=== PATIENT | male | born 1955 | race Caucasian/White ===

== ENCOUNTER → 2017-01-16 | Outpatient (CLI) | payer BC ==
[~2017-01-16] MED LIST: AMLO-110 PO; MAGN250T3 PO; OXYC-106 PO; SERT-234 PO; SPIR50TA2 PO
[2017-01-16 10:29] LABS: BASO % 0.6 %; BASO ABS # 0.04 K/uL (0-0.2); COMPLETE YES; EOS % 3.7 %; HEMATOCRIT 45.8 % (42-52); IG% 0.6 %; LYMPH % 18.7 %; LYMPH ABS # 1.31 K/uL (1.2-3.4); MEAN CELL VOLUME 89.3 fL (80-100); MEAN CORPUSCULAR HGB CONC 35.8 g/dl (32-36); MEAN PLATELET VOLUME 11.1 fL (7.4-10.4); MONO % 9.9 %; NEUT % 66.5 %; PLATELET COUNT 123 K/uL (130-400); RED BLOOD COUNT 5.13 M/uL (4.7-6.1)
[2017-01-16 10:43] LABS: ESTIMATED AVERAGE GLUCOSE 88 mg/dl; HA1C FLAG Normal (Normal)
[2017-01-16 14:19] LABS: ALT/SGPT 56 U/L (12-78); AST/SGOT 29 U/L (15-37); BLOOD UREA NITROGEN 18 mg/dl (7-18); BUN/CREATININE RATIO 14.8 (10-20); CALCIUM 9.1 mg/dl (8.5-10.1); CARBON DIOXIDE 29 mmol/L (21-32); CHLORIDE 107 mmol/L (98-107); GLUCOSE 88 mg/dl (70-99); MAGNESIUM 2.2 mg/dl (1.8-2.4); POTASSIUM 4.3 mmol/L (3.5-5.1); PROSTATE SPECIFIC ANTIGEN 0.987 ng/ml (0.000-4.000); SODIUM 141 mmol/L (136-145)
[2017-01-16 14:21] LABS: ALB/GLOB RATIO 1.1 (0.9-2); ALKALINE PHOSPHATASE 102 U/L (45-117); CHOLESTEROL 164 mg/dl (0-200); CHOLESTEROL/HDL RATIO 3.8; HDL CHOLESTEROL 43 mg/dl; LDL CHOLESTEROL CALCULATED 98 mg/dl; TRIGLYCERIDES 115 mg/dl (0-150); VERY LOW DENSITY LIPOPROT CALC 23 mg/dl
--- NOTE | 2017-01-23 11:10 | CODING QUERY MEDICAL NECESSITY ---
CQSUPPORTING DIAGNOSIS NEEDED A supporting diagnosis is required for the test/procedure performed on this patient in order for us to be reimbursed by the patient's insurance. Please provide a supporting diagnosis for the following test/procedure listed below next to the test name along with your signature. *If there is no additional diagnosis for this patient that would support the following test/procedure please document that below next to the test/procedure. Test(s)/Procedure(s) that require a supporting diagnosis: DOS 01/16/17 PROSTATE SPECIFIC Provider Signature: Date: Thank you Francisca Jay [employer] Once completed, please kindly fax back to [phone] For questions please call [phone]
== END | disposition home or self-care (01) ==
LOC: C.LABBC 08:56
PROVIDERS: ATTEND Internal Medicine
DX: E78.00 Pure hypercholesterolemia, unspecified (principal); E26.09 Other primary hyperaldosteronism; E83.42 Hypomagnesemia; R73.01 Impaired fasting glucose

== ENCOUNTER → 2017-05-11 | Outpatient (CLI) | payer BC ==
--- NOTE | 2017-05-11 11:44 | DIAGNOSTIC IMAGING REPORT ---
MRI OF THE LUMBAR SPINE WITHOUT CONTRAST CLINICAL HISTORY: Low back pain. Lumbar spinal stenosis. Lumbar radiculopathy. COMPARISON STUDY: MRI of the lumbar spine September 07, 2014. TECHNIQUE: Utilizing a 1.5 Asha magnet and dedicated coil, multiplanar, multiecho imaging of the lumbar spine was performed without IV contrast. FINDINGS: For purposes of numbering on this exam, the L5-S1 disc space is assigned to axial image 23 of 26. Note is made of interval postsurgical findings consistent with L5-S1 laminectomies. There is no intracanalicular mass or fluid collection. Prominent epidural fat within the lumbar and sacral canals is noted. Conus terminates at the upper L1 level. Paravertebral soft tissues are unremarkable. L1-2: The central canal and neural foramen are patent. L2-3: There is mild disc space narrowing with facet arthrosis. The central canal and neural foramen are patent. L3-4: There is disc space narrowing with facet arthrosis. There is minimal disc bulge. There is mild narrowing of the central canal and the right neural foramen. L4-5: There is mild disc bulge with ligamentous hypertrophy. There is minimal narrowing of the central canal, lateral recesses and neural foramen. L5-S1: Central canal and neural foramen are patent. IMPRESSION: 1. Status post interval L5-S1 laminectomy. 2. Mild multilevel degenerative disc disease with moderate multilevel facet arthrosis. Mild central canal narrowing at L3-L4 and minimal central canal narrowing at L4-L5. 3. Mild multilevel neural foraminal stenosis. Electronically signed by: Reagan Coates M.D. 05/11/2017 11:43 AM Dictated Date/Time: 05/11/2017 11:36 AM
== END | disposition home or self-care (01) ==
LOC: C.MRI 10:45
PROVIDERS: ATTEND Physical Medicine & Rehabilitation
DX: L82.0 Inflamed seborrheic keratosis (principal); M54.16 Radiculopathy, lumbar region; M48.06 Spinal stenosis, lumbar region; M51.36 Other intervertebral disc degeneration, lumbar region; M46.99 Unspecified inflammatory spondylopathy, multiple sites in spine

== ENCOUNTER → 2017-06-11 | Day surgery (SDC) | payer BC ==
[2017-05-20 09:25] VITALS: Ht 175.3 cm; Wt 113.6 kg
[~2017-06-11] VITALS: Ht 175.3 cm; Wt 113.6 kg
[~2017-06-11] MED LIST changes: +IOPAMIDOL INJ 61% 15 ML VIAL ONE; +LIDOCAINE HCL 1% MPF 5 ML VIAL ONE; -OXYC-106 PO; +SODIUM CHLORIDE 0.9% INJ 10 ML VIAL ONE
--- NOTE | 2017-06-11 13:06 | History & Physical Bridge - SC ---
H&P Re-Evaluation Bridge Note: I have examined the patient, reviewed the History & Physical and in the interval since the performance of the History & Physical I have noted the following changes of clinical significance: No changes noted
[2017-06-11 13:30] VITALS: TEMP 36.4
[2017-06-11 13:40] VITALS: BP 170/70; PULSE 60; O2SAT 96
--- NOTE | 2017-06-11 13:40 | Discharge Instructions ---
Discharge Instructions Date of Service Jun 11, 2017. Visit Reason for Visit: Lumbar Radiculopathy Discharge Discharge Diagnosis / Problem: leg pain Discharge Goals Goal(s): Decrease discomfort, Improve function Activity Recommendations Activity Limitations: resume your previous activity Anesthesia . Post Anesthesia Instructions: If you have had General Anesthesia or IV Sedation: * Do not drive today. * Resume driving when surgeon permits. * Do not make important decisions or sign legal documents today. * Call surgeon for: 1. Temperature elevations greater than 101 degrees F. 2. Uncontrollable pain. 3. Excessive bleeding. 4. Persistent nausea and vomiting. 5. Medication intolerance (nausea, vomiting or rash). * For nausea and vomiting use only clear liquids such as: tea, soda, bouillon until nausea subsides, then gradually increase diet as tolerated. * If you have any concerns or questions, call your surgeon's office. If physician is unavailable and it is an emergency, call 911 or go to the nearest emergency room. . Diet Recommendations Recommended Home Diet: resume previous diet Procedures Procedures Performed: LUMBAR EPIDURAL STEROID INJECTION Pending Studies Studies pending at discharge: no Medical Emergencies . Who to Call and When: Medical Emergencies: If at any time you feel your situation is an emergency, please call 911 immediately. . Non-Emergent Contact Non-Emergency issues call your: Specialist . . "Provider Documentation" section prepared by Elie Mckee. .
--- NOTE | 2017-06-11 14:19 | OPERATIVE REPORT ---
DATE OF OPERATION: 06/11/2017 PREOPERATIVE DIAGNOSIS: L4-L5 stenosis with neurogenic claudication and radiculopathy. POSTOPERATIVE DIAGNOSIS: Same. PROCEDURE: Left paramedian L4-L5 interlaminar epidural steroid injection under fluoroscopic guidance. SURGEON: Dr. Elie Mckee. INDICATIONS: The patient is a 62-year-old white male that did not respond to a caudal epidural. He has known stenosis at L4-L5 and a laminectomy at L5-S1. Decision is made above the site of laminectomy to address his radicular pain. PHYSICAL EXAMINATION: Pleasant male seated comfortably in no apparent distress. He has no focal weakness. He has some difficulty moving from a sit to stand position and ambulated independently in a flexed position. CONSENT: Verbal and written consent was obtained from the patient. Risks and benefits were reviewed. Risks include but are not limited to epidural abscess, epidural hematoma, allergic reaction, dural puncture. The patient wishes to proceed. PROCEDURE: The patient was taken back to the special procedures room of the [facility] where he was maintained in a prone position. Backside was cleansed with Betadine x3 and a dry sterile dressing was applied. Fluoroscope was used to identify the L4-L5 interlaminar space and the overlying skin was anesthetized on the left side with 4 mL of lidocaine 1% with a 25 gauge 1.5-inch needle. A 22-gauge 3-1/2 inch Tuohy needle was then directed down towards the intralaminar space. It was advanced under lateral fluoroscopic guidance and loss of resistance was noted at a depth of 9 cm with the hub of the needle contacting the skin. He then underwent injection after negative aspiration of 1 mL of Isovue 300 contrast which demonstrated epidural uptake pattern. He then underwent injection after negative aspiration of 40 mg of Depo-Medrol and 4 mL of preservative free sodium chloride. Injection was well tolerated. DISPOSITION: 1. The patient is taken out into the discharge recovery area where he will be discharged home once discharge criteria have been met. 2. Follow up in the [facility] office in 2-4 weeks. I attest to the content of the Intraoperative Record and any orders documented therein. Any exception s are noted below.
== END | disposition home or self-care (01) ==
LOC: X.SURG 12:42
PROVIDERS: ATTEND Physical Medicine & Rehabilitation
DX: M48.062 Spinal stenosis, lumbar region with neurogenic claudication (principal); M54.16 Radiculopathy, lumbar region

== ENCOUNTER → 2017-12-21 | Day surgery (SDC) | payer BC, OTHER ==
[2017-12-10 08:47] VITALS: Ht 175.3 cm; Wt 113.6 kg
[~2017-12-21] VITALS: Ht 175.3 cm; Wt 113.6 kg
--- NOTE | 2017-12-21 15:36 | [facility] Post Operative Brief Note ---
Immediate Operative Summary Operative Date Dec 21, 2017. Pre-Operative Diagnosis LUMBAR SPINAL STENOSIS WITH LEFT L4 RADICULOPATHY Post-Operative Diagnosis LUMBAR SPINAL STENOSIS WITH LEFT L4 RADICULOPATHY Procedure(s) Performed LUMBAR EPIDURAL STEROID INJECTION Surgeon DR. Piedad CARROLL [employer] Surgeon(s) None Estimated Blood Loss None Findings Consistent with Post-Op Diagnosis Specimens NA Drains None Anesthesia Type Local Complication(s) none Disposition Disposition:
--- NOTE | 2017-12-21 15:37 | Discharge Instructions ---
Discharge Instructions Date of Service Dec 21, 2017. Visit Reason for Visit: Lumbar Radiculopathy Discharge Discharge Diagnosis / Problem: Low back pain Discharge Goals Goal(s): Decrease discomfort, Improve function Activity Recommendations Activity Limitations: resume your previous activity Anesthesia . Post Anesthesia Instructions: If you have had General Anesthesia or IV Sedation: * Do not drive today. * Resume driving when surgeon permits. * Do not make important decisions or sign legal documents today. * Call surgeon for: 1. Temperature elevations greater than 101 degrees F. 2. Uncontrollable pain. 3. Excessive bleeding. 4. Persistent nausea and vomiting. 5. Medication intolerance (nausea, vomiting or rash). * For nausea and vomiting use only clear liquids such as: tea, soda, bouillon until nausea subsides, then gradually increase diet as tolerated. * If you have any concerns or questions, call your surgeon's office. If physician is unavailable and it is an emergency, call 911 or go to the nearest emergency room. . Diet Recommendations Recommended Home Diet: resume previous diet Procedures Procedures Performed: LUMBAR EPIDURAL STEROID INJECTION Pending Studies Studies pending at discharge: no Medical Emergencies . Who to Call and When: Medical Emergencies: If at any time you feel your situation is an emergency, please call 911 immediately. . Non-Emergent Contact Non-Emergency issues call your: Specialist . . "Provider Documentation" section prepared by Elie Mckee. .
[2017-12-21 15:39] VITALS: TEMP 36.9
[2017-12-21 16:01] VITALS: BP 166/78; PULSE 54; O2SAT 97
--- NOTE | 2017-12-21 19:28 | OPERATIVE REPORT ---
DATE OF OPERATION: 12/21/2017 PREOPERATIVE DIAGNOSIS: L4-L5 stenosis with low back pain. POSTOPERATIVE DIAGNOSIS: L4-L5 stenosis with low back pain. PROCEDURE: Left paramedian L3-L4 intralaminar epidural steroid injection under fluoroscopic guidance. INDICATIONS: The patient is a 62-year-old male who has received epidural injections in the past, totaling 4 of them. They are effective for a number of months; however, his pain has been increasing and function limiting to him. He presents today for an epidural injection. PHYSICAL EXAMINATION: Pleasant male seated comfortably. He has minimal tenderness over the left SI joint. He has negative seated straight leg raises, without any focal weakness. CONSENT: Verbal and written consents obtained from the patient. Risks and benefits were reviewed. Risks include but are not limited to epidural abscess, epidural hematoma, allergic reaction, and dural puncture. The patient wishes to proceed. DESCRIPTION OF PROCEDURE: The patient was taken back to the special procedures room at [facility] where he was maintained in a prone position. Backside was cleansed with Betadine x3, and a dry sterile dressing was applied. Fluoroscope was used to identify the L3-L4 intralaminar space, which was above the surgical site. Overlying skin on the left side was anesthetized with 4 mL of lidocaine 1% with a 25 gauge one-half inch needle. A 22 gauge 4-1/4 inch Tuohy needle was then directed down toward the intralaminar space. It was advanced under lateral fluoroscopic guidance. Loss of resistance was noted at a depth of just under 10 cm. Isovue-300 contrast 1 mL was injected which demonstrated epidural uptake pattern, which was confirmed with a lateral view. He then underwent injection after negative aspiration of 40 mg of Depo-Medrol, 4 mL of preservative free sodium chloride. Injection was well tolerated. DISPOSITION: 1. The patient is taken out into the discharge recovery area where he will be discharged home once discharge criteria met. 2. Follow up in the [facility] office in 4 weeks' time. I attest to the content of the Intraoperative Record and any orders documented therein. Any exception s are noted below.
== END | disposition home or self-care (01) ==
LOC: X.SURG 13:58
PROVIDERS: ATTEND Physical Medicine & Rehabilitation
DX: M48.061 Spinal stenosis, lumbar region without neurogenic claudication (principal); M54.16 Radiculopathy, lumbar region; I10 Essential (primary) hypertension; G47.30 Sleep apnea, unspecified; L82.1 Other seborrheic keratosis; E66.9 Obesity, unspecified